=== PATIENT | male | born 1970 | race Caucasian/White ===

== ENCOUNTER 2019-07-12 06:52 | Emergency (ER) | payer OTHER ==
[~2019-07-12] VITALS: Ht 167.6 cm; Wt 82.0 kg
[2019-07-12] MEDS ORDERED: KETOROLAC 15MG/ML VIAL IM ONE (07:45)
[2019-07-12 08:10] VITALS: BP 139/84
== END 2019-07-12 09:06 | disposition home or self-care (01) ==
LOC: ER 06:52
DX: S89.81XA Other specified injuries of right lower leg, initial encounter (principal); W01.0XXA Fall on same level from slipping, tripping and stumbling without subsequent striking against object, initial encounter; Y93.02 Activity, running; Y92.89 Other specified places as the place of occurrence of the external cause
CPT/HCPCS: 73562; 73590; 96372; 99283; J1885